=== PATIENT | female | born 1990 | race African-American/Black ===

== ENCOUNTER 2016-10-19 00:44 | Emergency (ER) | payer OTHER ==
--- NOTE | 2016-10-19 01:29 | PDOC ---
History of Present Illness - General History Source: Patient Exam Limitations: No Limitations - History of Present Illness Initial Comments: 10/19/16 01:59 The patient is a 26 year old female with no PMHx who presents to the ED with back pain urinary frequency. She reports back pain before due to scoliosis, but states this pain is different. She denies flank pain, dysuria, hematuria, nausea , vomiting, fever, chills. <Arlet Messer - Last Filed: 10/19/16 01:59> <Miladys Raymundo - Last Filed: 10/19/16 06:15> - General Chief Complaint: Back Pain Stated Complaint: preg test Time Seen by Provider: 10/19/16 01:21 Past History <Arlet Messer - Last Filed: 10/19/16 01:59> - Past Medical History Suicide Attempt (Hx): No - Immunization History Immunization Up to Date: Yes - Psycho/Social/Smoking Cessation Hx Anxiety: No Suicidal Ideation: No Smoking Status: No Smoking History: Current every day smoker Have you smoked in the past 12 months: No Number of Cigarettes Smoked Daily: 3 Cigars Per Day: 0 Hx Alcohol Use: No Drug/Substance Use Hx: No Substance Use Type: Marijuana <Miladys Raymundo - Last Filed: 10/19/16 06:15> - Past Medical History Allergies/Adverse Reactions: Allergies Allergy/AdvReac Type Severity Reaction Status Date / Time lactose Allergy Verified 10/19/16 01:41 Home Medications: Ambulatory Orders Methocarbamol [Robaxin -] 500 mg PO TID #30 tablet 10/19/16 Review of Systems - Review of Systems Comments:: 10/19/16 02:00 GENERAL/CONSTITUTIONAL: No fever or chills. No weakness. HEAD, EYES, EARS, NOSE AND THROAT: No change in vision. No ear pain or discharge. No sore throat. CARDIOVASCULAR: No chest pain or shortness of breath. RESPIRATORY: No cough, wheezing, or hemoptysis. GASTROINTESTINAL: No nausea, vomiting, diarrhea or constipation. GENITOURINARY: + frequency. No dysuria, flank pain or change in urination. MUSCULOSKELETAL: + back pain. No joint or muscle swelling or pain. No neck pain. SKIN: No rash NEUROLOGIC: No headache, vertigo, loss of consciousness, or change in strength/ sensation. ENDOCRINE: No increased thirst. No abnormal weight change. HEMATOLOGIC/LYMPHATIC: No anemia, easy bleeding, or history of blood clots. ALLERGIC/IMMUNOLOGIC: No hives or skin allergy. <Arlet Messer - Last Filed: 10/19/16 01:59> *Physical Exam - Vital Signs Last Vital Signs Temp Pulse Resp BP Pulse Ox 98 F 86 16 125/70 100 10/19/16 01:37 10/19/16 01:37 10/19/16 01:37 10/19/16 01:37 10/19/16 01:37 - Physical Exam Comments: 10/19/16 02:01 GENERAL: Awake, alert, and fully oriented, in no acute distress, HEAD: No signs of trauma EYES: PERRLA, EOMI, sclera anicteric, conjunctiva clear ENT: Auricles normal inspection, hearing grossly normal, nares patent, oropharynx clear without exudates. Moist mucosa NECK: Normal ROM, supple, no lymphadenopathy, JVD, or masses LUNGS: Breath sounds equal, clear to auscultation bilaterally. No wheezes, and no crackles HEART: Regular rate and rhythm, normal S1 and S2, no murmurs, rubs or gallops ABDOMEN: Soft, nontender, normoactive bowel sounds. No guarding, no rebound. No masses EXTREMITIES: Midline tenderness around T8-T9. Normal range of motion, no edema. No clubbing or cyanosis. No cords, erythema. No CVA tenderness. NEUROLOGICAL: Cranial nerves II through XII grossly intact. Normal speech, normal gait SKIN: Warm, Dry, normal turgor, no rashes or lesions noted. <Arlet Messer A - Last Filed: 10/19/16 01:59> ED Treatment Course - ADDITIONAL ORDERS Additional order review: Laboratory Results 10/19/16 10/19/16 01:30 01:30 Urine Color Yellow Urine Appearance Clear Urine pH 5.0 Ur Specific [place] 1.032 Urine Protein Negative Urine Glucose (UA) Negative Urine Ketones Negative Urine Blood Negative Urine Nitrite Negative Urine Bilirubin Negative Urine Urobilinogen Negative Ur Leukocyte Esterase Trace H Urine RBC 1 Urine WBC 5 Ur Epithelial Cells Few Urine Bacteria Rare Hyaline Casts 2 Urine Mucus Many Urine HCG, Qual Negative <Arlet Messer A - Last Filed: 10/19/16 01:59> Medical Decision Making - Medical Decision Making 10/19/16 06:14 Pt comes with back pain. She states that she has scoliosis and that she thinks that this is the muscle pain. However, the pain is slightly worse and she is in th ER with a friend, so she figured she would get evaluated also. She will be treated with NSAID and muscle relaxant. UA is normal. I will not get imaging studies at this time <Miladys Raymundo - Last Filed: 10/19/16 06:15> *DC/Admit/Observation/Transfer - Attestations Scribe Attestion: 10/19/16 02:02 Documentation prepared by Arlet Messer, acting as medical transcription for Miladys Raymundo MD. <Arlet Messer - Last Filed: 10/19/16 01:59> - Discharge Dispostion Admit: No <Miladys Raymundo - Last Filed: 10/19/16 06:15> Diagnosis at time of Disposition: Musculoskeletal pain - Discharge Dispostion Disposition: HOME Condition at time of disposition: Stable - Prescriptions Prescriptions: Methocarbamol [Robaxin -] 500 mg PO TID #30 tablet - Referrals Referrals: Hussain Portillo MD [Primary Care Provider] - - Patient Instructions Printed Discharge Instructions: DI for Musculoskeletal Pain - Post Discharge Activity Work/School Note: Back to Work
[2016-10-19] MEDS ORDERED: IBUPROFEN 600 MG TABLET (FP) PO ONE ×2 (01:30→01:56)
[2016-10-19] MEDS ORDERED: METHOCARBAMOL 500 MG TABLET PO ONE (01:31)
[2016-10-19 01:48] LABS: URINE APPEARANCE CLEAR; URINE BILIRUBIN NEGATIVE (NEGATIVE); URINE BLOOD NEGATIVE (NEGATIVE); URINE COLOR YELLOW; URINE GLUCOSE (UA) NEGATIVE (NEGATIVE); URINE KETONE NEGATIVE (NEGATIVE); URINE NITRITE NEGATIVE (NEGATIVE); URINE PROTEIN NEGATIVE (NEGATIVE); URINE UROBILINOGEN NEGATIVE E.U./dl (0.2-1.0)
[2016-10-19 01:49] LABS: URINE LEUK ESTERASE TRACE (NEGATIVE)
[2016-10-19 01:50] LABS: URINE BACTERIA RARE /hpf (NONE SEEN); URINE HYALINE CAST 2 /lpf; URINE MUCUS MANY; URINE RBC 1 /hpf (0-3); URINE WBC 5 /hpf (3-5)
[2016-10-19] MEDS ORDERED: METHOCARBAMOL 500 MG TABLET ONE (01:55)
[2016-10-19 03:49] VITALS: BP 125/70; PULSE 86; TEMP 98; BMI 32.9
== END 2016-10-19 02:12 | disposition home or self-care (01) ==
LOC: JER 00:44
DX: M54.5 Low back pain (principal); F17.210 Nicotine dependence, cigarettes, uncomplicated
CPT/HCPCS: 81003; 81015; 84703; 99281-25

== ENCOUNTER 2017-04-04 17:44 | Emergency (ER) | payer OTHER ==
[2017-04-04 17:53] VITALS: BP 122/76; PULSE 89; TEMP 98.4; BMI 33.6
[2017-04-04] MEDS ORDERED: ACETAMINOPHEN 325 MG TABLET (FP) PO ONE (19:00)
--- NOTE | 2017-04-04 19:07 | PDOC ---
History of Present Illness - General Chief Complaint: Headache Stated Complaint: HEADACHE Time Seen by Provider: 04/04/17 18:29 History Source: Patient Exam Limitations: No Limitations - History of Present Illness Initial Comments: 04/04/17 19:04 Chief complaint: Left upper molar toothache and left sided headache History of present illness: Patient is a 26-year-old female with no significant medical history here today complaining of a severe headache left side of head that started approximately at 3 PM today. Patient reports she has left upper molar decay with pain getting worse over the last couple months. Patient reports that she was waiting for insurance to become active so that she could get it treated. Patient reports that pain is currently a 10 out of 10 slight photophobia patient denies any nausea or vomiting or fever. She reports noticing left-sided facial swelling this morning none is noted presently. Timing/Duration: getting worse Severity: severe (left side of head) Associated Symptoms: reports: headaches (left sided ), other (left upper toothache) Past History - Past Medical History Allergies/Adverse Reactions: Allergies Allergy/AdvReac Type Severity Reaction Status Date / Time lactose Allergy Verified 04/04/17 17:49 Home Medications: Ambulatory Orders Oxycodone HCl/Acetaminophen [Percocet 5-325 mg Tablet] 1 tab PO Q6H PRN #6 tablet MDD 3 04/04/17 Penicillin V Potassium [Pen Vee K -] 500 mg PO QID #28 tablet 04/04/17 Suicide Attempt (Hx): No - Immunization History Immunization Up to Date: Yes - Psycho/Social/Smoking Cessation Hx Anxiety: No Suicidal Ideation: No Smoking Status: No Smoking History: Current every day smoker Have you smoked in the past 12 months: No Number of Cigarettes Smoked Daily: 3 Cigars Per Day: 0 Information on smoking cessation initiated: No Hx Alcohol Use: No Drug/Substance Use Hx: No Substance Use Type: Marijuana Review of Systems - Review of Systems Able to Perform ROS?: Yes Constitutional: No: Symptoms Reported HEENTM: Yes: Dental Problems (left upper molar decay painful) Respiratory: No: Symptoms reported Cardiac (ROS): No: Symptoms Reported ABD/GI: No: Symptoms Reported : No: Symptoms Reported Musculoskeletal: No: Symptoms Reported Integumentary: Yes: Other (left sided upper molar pain ) Neurological: Yes: Headache (left temporal ) *Physical Exam - Vital Signs Last Vital Signs Temp Pulse Resp BP Pulse Ox 98.4 F 89 17 122/76 99 04/04/17 17:49 04/04/17 17:49 04/04/17 17:49 04/04/17 17:49 04/04/17 17:49 - Physical Exam General Appearance: Yes: Appropriately Dressed HEENT: positive: EOMI, MICHAEL, TMs Normal, Other (left upper molar decay/tender surrounding gum edema ). negative: Pharyngeal Erythema, Tonsillar Exudate, Tonsillar Erythema, Nasal Congestion, Rhinorrhea Neck: positive: Lymphadenopathy (L). negative: Lymphadenopathy (R) Respiratory/Chest: positive: Lungs Clear, Normal Breath Sounds. negative: Chest Tender, Respiratory Distress Cardiovascular: positive: Regular Rhythm, Regular Rate, S1, S2 Integumentary: positive: Normal Color Neurologic: positive: icu specialist II-XII NML intact, Fully Oriented, Alert, Normal Response, Responsive, Finger to Nose Medical Decision Making - Medical Decision Making 04/04/17 19:07 Patient is a 26-year-old female with no significant medical history here today complaining of a severe headache left side of head that started approximately at 3 PM today. Patient reports she has left upper molar decay with pain getting worse over the last couple months. Patient reports that she was waiting for insurance to become active so that she could get it treated. Patient reports that pain is currently a 10 out of 10 slight photophobia patient denies any nausea or vomiting or fever. She reports noticing left-sided facial swelling this morning none is noted presently. Pt. is not on OCP. Pt. is unsure of status. left sided headache toothache left upper molar PLAN: ACETAMINOPHEN 650 MG PO NOW URINE HCG NEGATIVE 04/04/17 19:43 PAIN PERSISTS PERCOCET 5MG/325 MG PO NOW that every 6 hrs prn severe pain # 6 tabs 04/04/17 20:27 feeling better will discharge with rx for pen vk 500 mg qid for 7 days follow up with dentist *DC/Admit/Observation/Transfer Diagnosis at time of Disposition: Tooth ache, Infected tooth Headache Qualifiers: Headache type: unspecified Headache chronicity pattern: acute headache Intractability: not intractable Qualified Code(s): R51 - Headache - Discharge Dispostion Disposition: HOME Condition at time of disposition: Stable - Referrals Referrals: Hussain Portillo MD [Primary Care Provider] - - Patient Instructions Additional Instructions: Follow Up with dentist tomorrow Ibuprofen as needed as directed by rapier insertion loom fixer for mild to moderate pain Return to emergency room if symptoms worsen Patient voiced understanding of discharge instructions and all questions were answered - Post Discharge Activity
[2017-04-04] MEDS ORDERED: ACETAMINOPHEN 325 MG TABLET (FP) ONE (19:17)
== END 2017-04-04 20:42 | disposition home or self-care (01) ==
LOC: JERFT 17:44
DX: K08.89 Other specified disorders of teeth and supporting structures (principal); R51 Headache
CPT/HCPCS: 84703; 99281-25

== ENCOUNTER 2017-09-17 18:40 | Emergency (ER) | payer OTHER ==
[2017-09-17 19:49] VITALS: BP 128/98; PULSE 75; TEMP 98.6; BMI 35.5
--- NOTE | 2017-09-17 19:49 | PDOC ---
Rapid Medical Evaluation Time Seen by Provider: 09/17/17 19:47 Medical Evaluation: Allergies Allergy/AdvReac Type Severity Reaction Status Date / Time lactose Allergy Verified 04/04/17 17:49 09/17/17 19:47 I have performed a brief in-person evaluation of this patient. The patient presents with a chief complaint of: right sided pelvic pain w/o fever/n/v x7 days. Neg urinary symptoms LMP:08/11/2017 Pertinent physical exam findings: left pelvic pain on palp. Abd exam;benign I have ordered the following: pelvic US, ua, upreg, cbc.,cmp The patient will proceed to the ED for further evaluation 09/17/17 19:51
[2017-09-17 20:05] LABS: BASO % 0.7 % (0-2.0); EOS % 0.8 % (0-4.5); HEMATOCRIT 39.8 % (32.4-45.2); HEMOGLOBIN 13.3 GM/dL (10.7-15.3); LYMPH % 30.1 % (8-40); MCH 28.1 pg (25.7-33.7); MCHC 33.5 g/dl (32.0-36.0); MEAN CELL VOLUME 83.7 fl (80-96); MEAN PLT VOLUME 7.7 fl (7.5-11.1); MONO % 7.1 % (3.8-10.2); NEUT % 61.3 % (42.8-82.8); PLATELET COUNT 271 K/MM3 (134-434); RBC 4.76 M/mm3 (3.60-5.2); RDW 13.8 % (11.6-15.6); WHITE BLOOD COUNT 9.6 K/mm3 (4.0-10.0)
[2017-09-17 20:10] LABS: HCG,QUALITATIVE URINE NEGATIVE; URINE APPEARANCE CLEAR; URINE BILIRUBIN NEGATIVE (NEGATIVE); URINE BLOOD NEGATIVE (NEGATIVE); URINE COLOR YELLOW; URINE GLUCOSE (UA) NEGATIVE (NEGATIVE); URINE KETONE NEGATIVE (NEGATIVE); URINE NITRITE NEGATIVE (NEGATIVE); URINE PROTEIN NEGATIVE (NEGATIVE)
[2017-09-17 20:12] LABS: URINE LEUK ESTERASE 1+ (NEGATIVE)
[2017-09-17 20:13] LABS: EPI CELLS RARE /HPF (FEW); URINE MUCUS RARE
[2017-09-17 21:07] LABS: ALBUMIN 3.6 g/dl (3.4-5.0); ALK PHOS 72 U/L (45-117); ANION GAP 6 (8-16); BILIRUBIN,TOTAL 0.4 mg/dL (0.2-1.0); BLOOD UREA NITROGEN 11 mg/dL (7-18); CALCIUM 8.6 mg/dL (8.5-10.1); CHLORIDE 102 mmol/L (98-107); CO2 29 mmol/L (21-32); CREATININE 0.8 mg/dL (0.55-1.02); GLUCOSE,RANDOM 84 mg/dL (74-106); POTASSIUM 3.9 mmol/L (3.5-5.1); SGOT/AST 16 U/L (15-37); SGPT/ALT 34 U/L (12-78); SODIUM 137 mmol/L (136-145); TOT PROT 7.7 g/dl (6.4-8.2)
--- NOTE | 2017-09-17 22:32 | PDOC ---
History of Present Illness <MichoacanoJaun - Last Filed: 09/17/17 22:30> - General History Source: Patient Exam Limitations: No Limitations - History of Present Illness Initial Comments: 09/17/17 23:06 The patient is a 27 year old female with no significant past medical history who presents to the ED with complaints of abdominal pain for the past week. The patient locates her pain to her LLQ and describes it as cramping. She reports that initially the pain was intermittent, but has been getting worse and more constant over the past week. It is accompanied with nausea as well as diarrhea yesterday followed by constipation today, but she denies vomiting. She denies any fevers, chills, cough, CP, or urinary symptoms. <Nova Bourne - Last Filed: 09/17/17 23:09> - General Chief Complaint: Pain Stated Complaint: ABD PAIN Time Seen by Provider: 09/17/17 19:47 Past History - Past Medical History COPD: No - Immunization History Immunization Up to Date: Yes - Suicide/Smoking/Psychosocial Hx Smoking Status: No Smoking History: Former smoker Have you smoked in the past 12 months: Yes Number of Cigarettes Smoked Daily: 3 Cigars Per Day: 0 Information on smoking cessation initiated: No Hx Alcohol Use: No Drug/Substance Use Hx: No Substance Use Type: None, Marijuana <Jaun Ríos - Last Filed: 09/17/17 22:30> <Nova Bourne - Last Filed: 09/17/17 23:09> - Past Medical History Allergies/Adverse Reactions: Allergies Allergy/AdvReac Type Severity Reaction Status Date / Time lactose Allergy Verified 09/17/17 19:49 Home Medications: Ambulatory Orders Oxycodone HCl/Acetaminophen [Percocet 5-325 mg Tablet] 1 tab PO Q6H PRN #6 tablet MDD 3 04/04/17 Penicillin V Potassium [Pen Vee K -] 500 mg PO QID #28 tablet 04/04/17 Review of Systems - Review of Systems Able to Perform ROS?: Yes Comments:: 09/17/17 23:07 Vitals: Triage Vital signs reviewed General Appearance: no acute distress, well nourished well developed, Cardiac: Regular rate and rhythm, no murmurs, no rubs, no gallops, Lungs: Clear to auscultation bilateral, good air movement bilaterally, Abdomen: Mild LLQ tenderness to palpation, Soft, nondistended, normal bowel sounds Pelvic: No adnexal tenderness, no CMT, moderate yeast infection Extremities: Full range of motion to all extremities, no cyanosis, clubbing, or edema Skin: Warm and dry, no rashes or lesions, no petechiae Neuro: AOX3; Cranial Nerves 2-12 grossly intact <YesicacarolinaNova - Last Filed: 09/17/17 23:09> *Physical Exam - Vital Signs Last Vital Signs Temp Pulse Resp BP Pulse Ox 98.6 F 75 20 128/98 100 09/17/17 19:45 09/17/17 19:45 09/17/17 19:45 09/17/17 19:45 09/17/17 19:45 <Jaun Ríos - Last Filed: 09/17/17 22:30> - Vital Signs Last Vital Signs Temp Pulse Resp BP Pulse Ox 98.6 F 75 20 128/98 100 09/17/17 19:45 09/17/17 19:45 09/17/17 19:45 09/17/17 19:45 09/17/17 19:45 <YesicacarolinaNova - Last Filed: 09/17/17 23:09> ED Treatment Course - LABORATORY CBC & Chemistry Diagram: 09/17/17 19:58 09/17/17 19:54 - ADDITIONAL ORDERS Additional order review: Laboratory Results 09/17/17 09/17/17 19:58 19:54 Sodium 137 Potassium 3.9 Chloride 102 Carbon Dioxide 29 Anion Gap 6 L BUN 11 Creatinine 0.8 Creat Clearance w eGFR > 60 Random Glucose 84 Calcium 8.6 Total Bilirubin 0.4 AST 16 ALT 34 Alkaline Phosphatase 72 Total Protein 7.7 Albumin 3.6 Urine Color Yellow Urine Appearance Clear Urine pH 6.0 Ur Specific [place] 1.023 Urine Protein Negative Urine Glucose (UA) Negative Urine Ketones Negative Urine Blood Negative Urine Nitrite Negative Urine Bilirubin Negative Urine Urobilinogen 2.0 H Ur Leukocyte Esterase 1+ H Urine WBC (Auto) 3 Urine RBC (Auto) 1 Ur Epithelial Cells Rare Urine Mucus Rare Urine HCG, Qual Negative 09/17/17 19:58 RBC 4.76 MCV 83.7 MCHC 33.5 RDW 13.8 MPV 7.7 Neutrophils % 61.3 D Lymphocytes % 30.1 D Monocytes % 7.1 Eosinophils % 0.8 D Basophils % 0.7 <Juan Ríos - Last Filed: 09/17/17 22:30> - LABORATORY CBC & Chemistry Diagram: 09/17/17 19:58 09/17/17 19:54 - ADDITIONAL ORDERS Additional order review: Laboratory Results 09/17/17 09/17/17 19:58 19:54 Sodium 137 Potassium 3.9 Chloride 102 Carbon Dioxide 29 Anion Gap 6 L BUN 11 Creatinine 0.8 Creat Clearance w eGFR > 60 Random Glucose 84 Calcium 8.6 Total Bilirubin 0.4 AST 16 ALT 34 Alkaline Phosphatase 72 Total Protein 7.7 Albumin 3.6 Urine Color Yellow Urine Appearance Clear Urine pH 6.0 Ur Specific [place] 1.023 Urine Protein Negative Urine Glucose (UA) Negative Urine Ketones Negative Urine Blood Negative Urine Nitrite Negative Urine Bilirubin Negative Urine Urobilinogen 2.0 H Ur Leukocyte Esterase 1+ H Urine WBC (Auto) 3 Urine RBC (Auto) 1 Ur Epithelial Cells Rare Urine Mucus Rare Urine HCG, Qual Negative 09/17/17 19:58 RBC 4.76 MCV 83.7 MCHC 33.5 RDW 13.8 MPV 7.7 Neutrophils % 61.3 D Lymphocytes % 30.1 D Monocytes % 7.1 Eosinophils % 0.8 D Basophils % 0.7 <Nova Bourne - Last Filed: 09/17/17 23:09> Medical Decision Making - Medical Decision Making 09/17/17 22:30 1 week history of mild left lower quadrant pain No fever no vomiting yesterday had loose stool today was slightly constipated. Patient with moderate yeast infection on pelvic exam no adnexal tenderness no CMT Labs unremarkable no elevated white blood cell count Ultrasound with no acute findings Given 1 week history of mild lower abdominal discomfort with no fever no white count no evidence of PID on pelvic exam and moderate yeast infection we'll treat with [id number] Monistat Patient will follow-up with her [employer] on Wednesday. She'll return to the emergency department for any fever severe worsening abdominal pain or for any concerns We discussed the utility of a CAT scan at this point but given 1 week history of symptoms with no fever no white count we have decided using shared decision making that the risk of radiation does not outweigh the risk of acute surgical pathology at this time should anything change she will return <Jaun Ríos - Last Filed: 09/17/17 22:30> *DC/Admit/Observation/Transfer - Discharge Dispostion Admit: No <Jaun Ríos - Last Filed: 09/17/17 22:30> - Attestations Scribe Attestion: 09/17/17 23:09 Documentation prepared by Nova Bourne, acting as medical coder for Jaun Ríos MD. <Nova Bourne - Last Filed: 09/17/17 23:09> Diagnosis at time of Disposition: Candidiasis - Referrals Referrals: Hussain Portillo MD [Primary Care Provider] - - Patient Instructions Printed Discharge Instructions: DI for Vaginal Yeast Infection Additional Instructions: Take an [id number] probiotic as directed on package. Take over-the- counter Monistat as directed on package. Drink plenty of fluids. Follow-up with your [employer] [employer] on Wednesday. Return to the emergency department immediately for any fever severe worsening abdominal pain or for any concerns. - Post Discharge Activity
== END 2017-09-17 23:01 | disposition home or self-care (01) ==
LOC: JER 18:40
DX: B37.3 Candidiasis of vulva and vagina (principal)
CPT/HCPCS: 36415; 76830-TC; 80053; 81003; 81015; 84703; 85025; 99281-25

== ENCOUNTER 2018-03-24 05:06 | Emergency (ER) | payer OTHER ==
[2018-03-24 05:13] VITALS: TEMP 98.5; BMI 36.0
[2018-03-24] MEDS ORDERED: SODIUM CHLORIDE 0.9% 500 ML INFUS.BAG IV ONE (05:19)
[2018-03-24] MEDS ORDERED: METOCLOPRAMIDE HCL INJECTION 10 MG/2 ML VIAL IVPUSH ONE (05:20)
[2018-03-24] MEDS ORDERED: ACETAMINOPHEN 1000 MG/100 ML VIAL (NON FORMULARY) IVPB ONE (05:20)
--- NOTE | 2018-03-24 05:29 | PDOC ---
History of Present Illness - General Chief Complaint: CVA/TIA Stated Complaint: LEFT SIDED BODY NUMBNESS Time Seen by Provider: 03/24/18 05:09 - History of Present Illness Initial Comments: 03/24/18 05:23 27-year-old female with no significant past medical history presents emergency Department with left-sided numbness. Patient notes left upper extremity numbness since 6 PM yesterday. She also reports numbness to her left lower extremity since 10 PM last night. Patient did not present at onset of symptoms because she wanted to "sleep for the ward helper." When the symptoms persisted, she presented to the emergency department. Patient works at [employer] and states her coworkers gave her Motrin but she denies any pain. Denies any current headache. Denies any headache that preceded the symptoms. She has never had any similar symptoms in the past. Denies any recent cold symptoms, diarrheal illness, back or neck pain. Denies chest pain, shortness of breath. Denies stiff neck. Denies rashes. Denies any tick bites. Denies abd pain, N/V/ D. Denies dizziness, speech difficulty. Denies urinary symptons Past History - Past Medical History Allergies/Adverse Reactions: Allergies Allergy/AdvReac Type Severity Reaction Status Date / Time lactose Allergy Verified 12/18/17 19:45 Home Medications: Ambulatory Orders Motrin - 400 mg PO ONCE 03/24/18 COPD: No - Immunization History Immunization Up to Date: Yes - Suicide/Smoking/Psychosocial Hx Smoking Status: No Smoking History: Current every day smoker Have you smoked in the past 12 months: Yes Number of Cigarettes Smoked Daily: 5 Cigars Per Day: 0 Information on smoking cessation initiated: Yes Hx Alcohol Use: No Drug/Substance Use Hx: No Substance Use Type: None, Marijuana Review of Systems - Review of Systems Comments:: 03/24/18 05:27 GENERAL/CONSTITUTIONAL: No fever or chills. No weakness. HEAD, EYES, EARS, NOSE AND THROAT: No change in vision. No ear pain or discharge. No sore throat. GASTROINTESTINAL: No nausea, vomiting, diarrhea or constipation. GENITOURINARY: No dysuria, frequency, or change in urination. CARDIOVASCULAR: No chest pain or shortness of breath. RESPIRATORY: No cough, wheezing, or hemoptysis. MUSCULOSKELETAL: No joint or muscle swelling or pain. No neck or back pain. SKIN: No rash NEUROLOGIC: No headache, vertigo, loss of consciousness, or change in strength. +L sided numbness ENDOCRINE: No increased thirst. No abnormal weight change. HEMATOLOGIC/LYMPHATIC: No anemia, easy bleeding, or history of blood clots. ALLERGIC/IMMUNOLOGIC: No hives or skin allergy. *Physical Exam - Vital Signs Last Vital Signs Temp Pulse Resp BP Pulse Ox 98.5 F 76 14 114/74 100 03/24/18 05:08 03/24/18 05:08 03/24/18 05:08 03/24/18 05:08 03/24/18 05:08 - Physical Exam Comments: 03/24/18 05:27 GENERAL: Awake, alert, and fully oriented, in no acute distress HEAD: No signs of trauma EYES: PERRLA, EOMI, sclera anicteric, conjunctiva clear ENT: Auricles normal inspection, hearing grossly normal, nares patent, oropharynx clear without exudates. Moist mucosa NECK: Normal ROM, supple, no lymphadenopathy, JVD, or masses LUNGS: Breath sounds equal, clear to auscultation bilaterally. No wheezes, and no crackles HEART: Regular rate and rhythm, normal S1 and S2, no murmurs, rubs or gallops ABDOMEN: Soft, nontender, normoactive bowel sounds. No guarding, no rebound. No masses EXTREMITIES: Normal range of motion, no edema. No clubbing or cyanosis. No cords, erythema, or tenderness NEUROLOGICAL: Normal speech, cranial nerves intact, negative pronator drift, 4/ 5 strength in LUE and LLE, 5/5 strength in RUE and RLE, normal sensation to light touch in all 4 extremities, normal cerebellar exam, normal gait, normal reflexes and tone SKIN: Warm, Dry, normal turgor, no rashes or lesions noted. NIH Stroke Scale - Last Known Well Date/Time & Onset Date Last Known Well: 03/23/18 Time Last Known Well: 18:00 - Initial Evaluation Level of consciousness: Alert Ask patient the month and their age: Answers both correctly Ask patient to open & close eyes; make fist and let go: Obeys both correctly Best gaze (horizontal eye movement): Normal Visual field testing: No visual field loss Facial paresis (Show teeth/raise eyebrows/close eyes tight): Normal symmetrical movement Motor Function: Left Arm: Some effort against gravity Motor Function: Right Arm: Normal (extends arm 90 (or 45) degrees for 10 seconds without drift Motor Function: Left Leg: Some effort against gravity Motor Function: Right Leg: Normal (extends leg 30 degrees for 5 seconds without drift) Limb Ataxia: No ataxia Sensory(Use pinprick test arms,legs,trunk,face/side to side): Mild to moderate decrease in sensation Best language (Describe picture, name items, read sentences): No Aphasia Dysarthria (read several words): Normal articulation Extinction and Inattention: No abnormality - Total Score NIH Stroke Scale Score: 5 TIA Risk Factors - ABCD Score Age: Age < 60 Blood Pressure: SBP < 140 and DBP < 90 Clinical Features of TIA: Uni wk w/wo speech impair Duration: TIA duration = or > 60min Diabetes: No Total ABCD2 Score (0-7):: 4 Heart Score/ECG Review #1 03/24/18 05:38 Twelve-lead EKG was performed and reviewed by me. Sinus bradycardia with sinus arrhythmia likely secondary to respiratory variation, rate 59. Normal axis, no ST elevations or T-wave inversions. Critical Care Time/MDM Note - Medical Decision Making Note: 03/24/18 05:30 27yo F with no sig PMH presents wit L sided numbness. VS wnl. Exam with LUE and LLE weakness and decreased sensation. DDX includes but not limited to cva vs tia vs atypical migraine vs conversion d/o. Plan -stroke labs -upt -cth -reglan/tylenol -neuro c/s -reassess Discharge Disposition - Discharge Dispostion Condition at time of disposition: Stable Last Admission D/C Date: 89 - Referrals - Patient Instructions - Post Discharge Activity
[2018-03-24] MEDS ORDERED: SODIUM CHLORIDE 1,000 ML IV SCH (05:30)
[2018-03-24] MEDS ORDERED: ACETAMINOPHEN INJECTION 100 ML IVPB ONE (05:41)
[2018-03-24 07:31] LABS: BASO % 0.6 % (0-2.0); EOS % 1.6 % (0-4.5); HEMATOCRIT 38.6 % (32.4-45.2); HEMOGLOBIN 12.8 GM/dl (10.7-15.3); LYMPH % 20.9 % (8-40); MCHC 33.2 g/dl (32.0-36.0); MEAN CELL VOLUME 81.3 fl (80-96); MONO % 6.5 % (3.8-10.2); NEUT % 70.4 % (42.8-82.8); PLATELET COUNT 353 K/MM3 (134-434); RBC 4.75 M/mm3 (3.60-5.2); RDW 12.9 % (11.6-15.6); WHITE BLOOD COUNT 10.2 K/mm3 (4.0-10.8)
[2018-03-24 07:41] LABS: PH,URINE 5.5 (4.5-8); URINE APPEARANCE Clear; URINE BILIRUBIN Negative (NEGATIVE); URINE COLOR Yellow; URINE GLUCOSE (UA) Negative (NEGATIVE); URINE KETONE Negative (NEGATIVE); URINE LEUK ESTERASE TRACE (NEGATIVE); URINE NITRITE Negative (NEGATIVE); URINE PROTEIN 1+ (NEGATIVE); URINE UROBILINOGEN 0.2 (0.2-1.0)
--- NOTE | 2018-03-24 07:43 | PDOC ---
*Physical Exam - Vital Signs Last Vital Signs Temp Pulse Resp BP Pulse Ox 98.5 F 76 14 114/74 100 03/24/18 05:08 03/24/18 05:08 03/24/18 05:08 03/24/18 05:08 03/24/18 05:08 ED Treatment Course - LABORATORY CBC & Chemistry Diagram: 03/24/18 05:17 03/24/18 05:17 - ADDITIONAL ORDERS Additional order review: Laboratory Results 03/24/18 03/24/18 05:18 05:17 Urine Color Yellow Urine Appearance Clear Urine pH 5.5 Ur Specific [place] >= 1.030 H Urine Protein 1+ H Urine Glucose (UA) Negative Urine Ketones Negative Urine Blood Negative Urine Nitrite Negative Urine Bilirubin Negative Urine Urobilinogen 0.2 Ur Leukocyte Esterase Trace H Urine HCG, Qual Negative 03/24/18 05:17 RBC 4.75 MCV 81.3 MCHC 33.2 RDW 12.9 MPV 8.0 Neutrophils % 70.4 Lymphocytes % 20.9 Monocytes % 6.5 Eosinophils % 1.6 Basophils % 0.6 - Medications Given in the ED: ED Medications Discontinued Medications Generic Name Dose Route Start Last Admin Trade Name Freq PRN Reason Stop Dose Admin Acetaminophen 1,000 mg 03/24/18 05:20 03/24/18 05:40 Ofirmev Injection - IVPB 03/24/18 05:21 1,000 mg ONCE ONE Administration Metoclopramide HCl 10 mg 03/24/18 05:20 03/24/18 05:40 Reglan Injection - IVPUSH 03/24/18 05:21 10 mg ONCE ONE Administration Sodium Chloride 1,000 ml 03/24/18 05:19 03/24/18 05:40 Normal Saline - IV 03/24/18 05:20 1,000 ml ONCE ONE Administration Medical Decision Making - Medical Decision Making 03/24/18 11:57 Late entry. Patient was endorsed to me by Dr. Levin at 7am shift change, pending labs and CTH. She states that she felt "pins and needles" in her L forearm and lower leg this morning, not quite numbness. She also felt mild weakness at the time. CTH read by radiology, no acute findings. Patient is able to ambulate in the ED, table for OR home. Contacted Dr. Portillo's office to discuss and arrange outpatient f/u, as MS is on the DDx, and this should be followed up. 03/24/18 12:11 Dr. Portillo's office states they will call her to arrange f/u and MRI if necessary. *DC/Admit/Observation/Transfer Diagnosis at time of Disposition: Paresthesias - Discharge Dispostion Disposition: HOME Condition at time of disposition: Stable Decision to Admit order: No - Referrals Referrals: Eric Bowman MD [Staff Physician] - - Patient Instructions Printed Discharge Instructions: DI for Headache, DI for Numbness/tingling - Post Discharge Activity Forms/Work/School Notes: Back to Work
[2018-03-24 07:50] LABS: ALK PHOS 63 U/L (32-92); ANION GAP 6 (8-16); BILIRUBIN,TOTAL 0.4 mg/dl (0.2-1.0); BLOOD UREA NITROGEN 11 mg/dl (7-18); CALCIUM 9.4 mg/dl (8.4-10.2); CHLORIDE 101 mmol/L (98-107); CHOLESTEROL 183 mg/dl; CO2 27 mmol/L (22-28); CREATININE 0.7 mg/dl (0.6-1.3); GLUCOSE,RANDOM 84 mg/dl (74-106); HDL CHOLESTEROL 61 mg/dl (29-89); POTASSIUM 3.6 mmol/L (3.5-5.1); SGOT/AST 26 U/L (10-42); SGPT/ALT 25 U/L (10-40); SODIUM 134 mmol/L (136-145); TOT PROT 7.9 g/dl (6.4-8.3); TRIGLYCERIDES 82 mg/dl (35-160)
[2018-03-24 07:55] LABS: INR 1.01 (0.82-1.09); PROTHROMBIN TIME (PATIENT) 11.3 SEC (10.2-13.0)
[2018-03-24 08:47] LABS: EPI CELLS MANY /HPF; URINE BACTERIA MANY /hpf (NEGATIVE); URINE RBC 0-3 /hpf (0-3)
[2018-03-24 08:53] VITALS: PULSE 63
[2018-03-24 10:53] VITALS: BP 124/77
[2018-03-24] MEDS ORDERED: ACETAMINOPHEN 325 MG TABLET (FP) PO ONE (12:15)
[2018-03-24] MEDS ORDERED: ACETAMINOPHEN 325 MG TABLET (FP) ONE (12:20)
--- NOTE | 2018-03-24 14:33 | EKG ---
Test Reason : Blood Pressure : / mmHG Vent. Rate : 059 BPM Atrial Rate : 059 BPM P-R Int : 146 ms QRS Dur : 080 ms QT Int : 404 ms P-R-T Axes : 048 028 033 degrees QTc Int : 399 ms SINUS BRADYCARDIA WITH SINUS ARRHYTHMIA OTHERWISE NORMAL ECG NO PREVIOUS ECGS AVAILABLE Confirmed by DOC RIVERA, LIZZ ([id number]) on 03/24/2018 2:32:34 PM Referred By: MD ELLIS Confirmed By:LIZZ ROACH MD
== END 2018-03-24 12:48 | disposition home or self-care (01) ==
LOC: FER 05:06
PROC: 3E033NZ Introduction of Analgesics, Hypnotics, Sedatives into Peripheral Vein, Percutaneous Approach (ICD-10-PCS; principal; 2018-03-24)
PROC: 3E033GC Introduction of Other Therapeutic Substance into Peripheral Vein, Percutaneous Approach (ICD-10-PCS; 2018-03-24)
PROC: 3E0337Z Introduction of Electrolytic and Water Balance Substance into Peripheral Vein, Percutaneous Approach (ICD-10-PCS; 2018-03-24)
DX: R20.2 Paresthesia of skin (principal); F17.210 Nicotine dependence, cigarettes, uncomplicated
CPT/HCPCS: 36415; 70450-TC; 80053; 81003; 81015; 82465; 83718; 84478; 84484; 84703; 85025; 85610; 93005; 99285-25; J0131

== ENCOUNTER 2018-06-05 20:50 | Emergency (ER) | payer OTHER ==
[2018-06-05 21:04] VITALS: BMI 35.5
[2018-06-05] MEDS ORDERED: METOCLOPRAMIDE HCL INJECTION 10 MG/2 ML VIAL IVPUSH ONE (23:40)
[2018-06-05] MEDS ORDERED: KETOROLAC TROMETHAMINE 30 MG/1 ML VIAL IVPUSH ONE (23:40)
[2018-06-05] MEDS ORDERED: SODIUM CHLORIDE 0.9% 500 ML INFUS.BAG IV ONE (23:40)
--- NOTE | 2018-06-05 23:50 | PDOC ---
History of Present Illness - General Chief Complaint: Headache Stated Complaint: PAIN Time Seen by Provider: 06/05/18 22:15 History Source: Patient Exam Limitations: No Limitations - History of Present Illness Initial Comments: 06/05/18 23:35 Patient is a 27-year-old female with no past medical history here with complaints of headache 2 weeks. States headache was a gradual onset now 10/10 associated with nausea, photophobia, no vomiting. States she has had headaches like this in the past however never been evaluated for migraines. went to [facility] on 3 days ago and was given a shot with no relief of symptoms. PMD: Dr. Portillo PMHX: as above PSOCHX: (+) cig 3/day, (-) drug, (-) etoh ALL: NKDA GENERAL/CONSTITUTIONAL: [No fever or chills. No weakness. No weight change.] HEAD, EYES, EARS, NOSE AND THROAT: [No change in vision. No ear pain or discharge. No sore throat.] CARDIOVASCULAR: [No chest pain or shortness of breath.] RESPIRATORY: [No cough, wheezing, or hemoptysis.] GASTROINTESTINAL: [No nausea, vomiting, diarrhea or constipation. No rectal bleeding.] GENITOURINARY: [No dysuria, frequency, or change in urination.] MUSCULOSKELETAL: [No joint or muscle swelling or pain. No neck or back pain.] SKIN AND BREASTS: [No rash or easy bruising.] NEUROLOGIC: [No headache, vertigo, loss of consciousness, or loss of sensation.] PSYCHIATRIC: [No depression or anxiety.] ENDOCRINE: [No increased thirst. No abnormal weight change.] HEMATOLOGIC/LYMPHATIC: [No anemia, easy bleeding, or history of blood clots.] ALLERGIC/IMMUNOLOGIC: [No hives or skin allergy. No latex allergy.] GENERAL: [The patient is awake, alert, and fully oriented, in mild distress, shielding eyes.] HEAD: [Normal with no signs of trauma.] EYES: [Pupils equal, round and reactive to light, extraocular movements intact, sclera anicteric, conjunctiva clear.] ENT: [Ears normal, nares patent, oropharynx clear without exudates. Moist mucous membranes.] NECK: [Normal range of motion, supple without lymphadenopathy, JVD, or masses.] LUNGS: [Breath sounds equal, clear to auscultation bilaterally. No wheezes, and no crackles.] HEART: [Regular rate and rhythm, normal S1 and S2 without murmur, rub.] ABDOMEN: [Soft, nontender, normoactive bowel sounds. No guarding, no rebound. No masses.] EXTREMITIES: [Normal range of motion, no edema. No clubbing or cyanosis. No cords, erythema, or tenderness.] NEUROLOGICAL: [Cranial nerves II through XII grossly intact. Normal speech, normal gait.] PSYCH: [Normal mood, normal affect.] SKIN: [Warm, Dry, normal turgor, no rashes or lesions noted.] Past History - Past Medical History Allergies/Adverse Reactions: Allergies Allergy/AdvReac Type Severity Reaction Status Date / Time lactose Allergy Verified 06/05/18 21:04 Home Medications: Ambulatory Orders Motrin - 400 mg PO ONCE 03/24/18 COPD: No - Immunization History Immunization Up to Date: Yes - Suicide/Smoking/Psychosocial Hx Smoking Status: No Smoking History: Current every day smoker Have you smoked in the past 12 months: Yes Number of Cigarettes Smoked Daily: 3 Cigars Per Day: 0 Information on smoking cessation initiated: No 'Breaking Loose' booklet given: 03/24/18 Hx Alcohol Use: No Drug/Substance Use Hx: No Substance Use Type: None *Physical Exam - Vital Signs Last Vital Signs Temp Pulse Resp BP Pulse Ox 98.4 F 66 16 117/73 100 06/05/18 21:01 06/05/18 21:01 06/05/18 21:01 06/05/18 21:01 06/05/18 21:01 ED Treatment Course - LABORATORY CBC & Chemistry Diagram: 06/05/18 23:40 06/06/18 00:30 Medical Decision Making - Medical Decision Making 06/05/18 23:35 Patient is a 27-year-old female with no past medical history here with complaints of headache 2 weeks. 06/06/18 02:36 Patient Full Name: JENNIFER WU Patient Accession No: [id number] Patient : 1990 Reason for Exam: headache Referring Physician: Patient Name: JAZMIN RODRIGUEZ THIS IS A PRELIMINARY REPORT FROM [facility] DATE OF SERVICE: 2018-06-06 01:34:52 IMAGES: [id number] EXAM: CT HEAD WITHOUT CONTRAST No acute brain parenchymal abnormality. No hemorrhage, mass or acute territorial infarct. Clear visualized paranasal sinuses. Visualized mastoid air cells clear. Individualized dose optimization techniques were used for this CT. THIS DOCUMENT HAS BEEN ELECTRONICALLY SIGNED Olivia Chun M.D. 06/06/2018 01:53 EST Allison. Please call Imaging Police Records Clerk [phone] ([phone]) with questions. INTERPRETING RADIOLOGIST: Olivia Chun MD Electronically Signed: Jun 06, 2018 01:53AM ED 06/06/18 04:56 Pain is resolved after Tylenol. I discussed the physical exam findings, ancillary test results and final diagnoses with the patient. I answered all of the patient's questions. The patient was satisfied with the care received and felt comfortable with the discharge plan and treatment plan. The Patient agrees to follow up with the primary care physician within 24-72 hours. *DC/Admit/Observation/Transfer Diagnosis at time of Disposition: Headache Qualifiers: Headache type: unspecified Headache chronicity pattern: acute headache Intractability: not intractable Qualified Code(s): R51 - Headache - Discharge Dispostion Disposition: HOME Condition at time of disposition: Stable - Referrals Referrals: Hussain Portillo MD [Primary Care Provider] - Fortino Mak DO [Staff Physician] - - Patient Instructions Printed Discharge Instructions: DI for Headache Additional Instructions: Your Discharge Instructions: You must call primary care physician within 24 hours to arrange follow-up. Return to the Emergency Department with any new, persistent or worsening symptoms, for fever, chills, SOB, dizziness or any other concerning changes that may occur. Must follow-up with neurology for appropriate treatment and evaluation - Post Discharge Activity
[2018-06-06] MEDS ORDERED: KETOROLAC TROMETHAMINE 30 MG/1 ML VIAL ONE (00:02)
[2018-06-06] MEDS ORDERED: METOCLOPRAMIDE HCL INJECTION 10 MG/2 ML VIAL ONE (00:02)
[2018-06-06 01:06] LABS: HEMATOCRIT 37.2 % (32.4-45.2); HEMOGLOBIN 12.4 GM/dL (10.7-15.3); MCH 27.2 pg (25.7-33.7); MCHC 33.2 g/dl (32.0-36.0); MEAN PLT VOLUME 8.5 fl (7.5-11.1); PLATELET COUNT 325 K/MM3 (134-434); RBC 4.54 M/mm3 (3.60-5.2); RDW 15.1 % (11.6-15.6); WHITE BLOOD COUNT 9.3 K/mm3 (4.0-10.0)
[2018-06-06 01:31] LABS: ALBUMIN 3.5 g/dl (3.4-5.0); ALK PHOS 75 U/L (45-117); ANION GAP 6 MMOL/L (8-16); BILIRUBIN,TOTAL 0.3 mg/dL (0.2-1); BLOOD UREA NITROGEN 10 mg/dL (7-18); CALCIUM 8.8 mg/dL (8.5-10.1); CHLORIDE 105 mmol/L (98-107); CO2 25 mmol/L (21-32); CREATININE 0.8 mg/dL (0.55-1.3); GLUCOSE,RANDOM 83 mg/dL (74-106); POTASSIUM 4.1 mmol/L (3.5-5.1); SGOT/AST 33 U/L (15-37); SGPT/ALT 41 U/L (13-61); SODIUM 137 mmol/L (136-145); TOT PROT 7.6 g/dl (6.4-8.2)
[2018-06-06] MEDS ORDERED: ACETAMINOPHEN 1000 MG/100 ML VIAL (NON FORMULARY) IVPB ONE (03:10)
[2018-06-06] MEDS ORDERED: ACETAMINOPHEN INJECTION 100 ML IVPB ONE (04:15)
[2018-06-06 05:32] VITALS: BP 106/62; PULSE 71; TEMP 98.2
== END 2018-06-06 05:28 | disposition home or self-care (01) ==
LOC: JER 20:50
PROC: 3E033GC Introduction of Other Therapeutic Substance into Peripheral Vein, Percutaneous Approach (ICD-10-PCS; principal; 2018-06-05)
PROC: 3E033GC Introduction of Other Therapeutic Substance into Peripheral Vein, Percutaneous Approach (ICD-10-PCS; 2018-06-05)
PROC: 3E033NZ Introduction of Analgesics, Hypnotics, Sedatives into Peripheral Vein, Percutaneous Approach (ICD-10-PCS; 2018-06-05)
PROC: 3E0333Z Introduction of Anti-inflammatory into Peripheral Vein, Percutaneous Approach (ICD-10-PCS; 2018-06-05)
DX: R51 Headache (principal)
CPT/HCPCS: 36415; 70450-TC; 80053; 84703; 85027; 96374; 96375; 99282-25; J0131

== ENCOUNTER 2018-06-24 17:09 | Emergency (ER) | payer OTHER ==
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
[2018-06-24 17:24] VITALS: BP 129/91; PULSE 94; TEMP 99.2; BMI 35.4
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
[2018-06-24] MEDS ORDERED: KETOROLAC TROMETHAMINE 30 MG/1 ML VIAL IVPUSH ONE (19:27)
[2018-06-24] MEDS ORDERED: METHOCARBAMOL 500 MG TABLET PO ONE (19:27)
[2018-06-24] MEDS ORDERED: KETOROLAC TROMETHAMINE 30 MG/1 ML VIAL IM ONE (19:28)
[2018-06-24] MEDS ORDERED: METHOCARBAMOL 500 MG TABLET ONE (19:44)
[2018-06-24] MEDS ORDERED: KETOROLAC TROMETHAMINE 30 MG/1 ML VIAL ONE (19:44)
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
== END 2018-06-24 18:20 | disposition home or self-care (01) ==
LOC: JER 17:09
PROC: 3E0233Z Introduction of Anti-inflammatory into Muscle, Percutaneous Approach (ICD-10-PCS; principal; 2018-06-24)
DX: S13.4XXA Sprain of ligaments of cervical spine, initial encounter (principal); V44.5XXA Car driver injured in collision with heavy transport vehicle or bus in traffic accident, initial encounter; Y92.488 Other paved roadways as the place of occurrence of the external cause; Y93.89 Activity, other specified; Y99.8 Other external cause status; F17.210 Nicotine dependence, cigarettes, uncomplicated
CPT/HCPCS: 72125-TC; 84703; 99282-25

== ENCOUNTER 2018-11-21 14:54 | Emergency (ER) | payer OTHER ==
[2018-11-21 15:10] VITALS: BP 131/74; PULSE 80; TEMP 99.4; BMI 35.5
[2018-11-21] MEDS ORDERED: ACETAMINOPHEN 500 MG TABLET (FP) PO ONE (15:45)
[2018-11-21] MEDS ORDERED: KETOROLAC TROMETHAMINE 60 MG/2 ML VIAL IM ONE (15:45)
--- NOTE | 2018-11-21 15:46 | PDOC ---
History of Present Illness - General Chief Complaint: Headache Stated Complaint: HEADACHE Time Seen by Provider: 11/21/18 15:43 - History of Present Illness Initial Comments: 11/21/18 15:45 28-year-old female without comorbidities presents for evaluation of a migraine headache. She states she has a history of migraines and this is similar in character to her prior headaches. She was a the care of a neurologist but she has since run out of her migraine medication. This headache is associated with a bandlike tension around her head. Typical of her usual headaches. She's had this for 2 days she has not taken any medication to try to abort the headache. She denies any possibility of . Past History - Past Medical History Allergies/Adverse Reactions: Allergies Allergy/AdvReac Type Severity Reaction Status Date / Time lactose Allergy Verified 11/21/18 15:10 Home Medications: Ambulatory Orders Methocarbamol [Robaxin -] 1,000 mg PO TID PRN 7 Days #21 tablet 06/24/18 Topiramate mg PO ASDIR 06/24/18 COPD: No Other medical history: SCOLIOSIS - Immunization History Immunization Up to Date: Yes - Suicide/Smoking/Psychosocial Hx Smoking Status: No Smoking History: Current every day smoker Have you smoked in the past 12 months: Yes Number of Cigarettes Smoked Daily: 3 Cigars Per Day: 0 Information on smoking cessation initiated: No 'Breaking Loose' booklet given: 03/24/18 Hx Alcohol Use: No Drug/Substance Use Hx: No Substance Use Type: None Review of Systems - Review of Systems Constitutional: No: Fever Neurological: Yes: Headache *Physical Exam - Vital Signs Last Vital Signs Temp Pulse Resp BP Pulse Ox 99.4 F 80 14 131/74 98 11/21/18 15:08 11/21/18 15:08 11/21/18 15:08 11/21/18 15:08 11/21/18 15:08 - Physical Exam Comments: 11/21/18 15:46 HEAD: NC/AT EYES: Conjuntiva clear Ears: Canals and TM's normal NOSE: No d/c THROAT: Moist mucous membrances, oral pharanx clear, uvula midline NECK: Supple without adenopathy CARDIAC: S1 S2 LUNGS: CTA Full and Equal breath sounds ABDOMEN: Soft NT ND MS: Full ROM in all joints without edema NEUROLOGIC: No gross sensory or motor deficits, NVID SKIN: Normal color and temperature no lesions or rashes Medical Decision Making - Medical Decision Making 11/21/18 16:00 Relief after Toradol and Tylenol. I'll give patient neurology follow-up discussed use of Tylenol and Motrin at home for headaches. *DC/Admit/Observation/Transfer Diagnosis at time of Disposition: Headache - Discharge Dispostion Disposition: HOME Condition at time of disposition: Improved Decision to Admit order: No - Referrals Referrals: Hussain Portillo MD [Primary Care Provider] - Fortino Mak DO [Staff Physician] - - Patient Instructions Printed Discharge Instructions: DI for Headache Additional Instructions: Tylenol Motrin as directed for headache. Return to the emergency room for worsening symptoms. Follow-up with neurology in 2-3 days for further evaluation and treatment options. - Post Discharge Activity Forms/Work/School Notes: Back to Work
[2018-11-21] MEDS ORDERED: KETOROLAC TROMETHAMINE 60 MG/2 ML VIAL ONE (15:47)
[2018-11-21] MEDS ORDERED: ACETAMINOPHEN 500 MG TABLET (FP) ONE (15:47)
== END 2018-11-21 16:04 | disposition home or self-care (01) ==
LOC: JERFT 14:54
PROC: 3E0233Z Introduction of Anti-inflammatory into Muscle, Percutaneous Approach (ICD-10-PCS; principal; 2018-11-21)
DX: G43.909 Migraine, unspecified, not intractable, without status migrainosus (principal)
CPT/HCPCS: 99281-25

== ENCOUNTER 2019-08-19 11:16 | Emergency (ER) | payer SELFPAY ==
[2019-08-19 11:28] VITALS: BMI 37.9
[2019-08-19] MEDS ORDERED: ONDANSETRON 4 MG/2 ML VIAL IVPB ONE (12:07)
[2019-08-19] MEDS ORDERED: SODIUM CHLORIDE 1,000 ML IV STA (12:07)
[2019-08-19] MEDS ORDERED: ACETAMINOPHEN 1000 MG/100 ML VIAL (NON FORMULARY) IVPB ONE (12:07)
[2019-08-19] MEDS ORDERED: ONDANSETRON 4 MG/2 ML VIAL ONE (12:12)
[2019-08-19] MEDS ORDERED: ACETAMINOPHEN INJECTION 100 ML IVPB ONE (12:12)
--- NOTE | 2019-08-19 12:31 | PDOC ---
History of Present Illness - General Chief Complaint: Nausea/Vomiting Stated Complaint: VOMITING/ BODY PAIN Time Seen by Provider: 08/19/19 11:40 History Source: Patient Exam Limitations: No Limitations - History of Present Illness Initial Comments: 08/19/19 12:23 CHIEF COMPLAINT: Abdominal pain HISTORY OF PRESENT ILLNESS: This is a 29-year-old female with a history of migraines who presents with two days of lower abdominal/back pain and vomiting. She denies constipation/diarrhea. She has been having chills and is febrile here today. She denies recent travel or sick contacts but does report having a catered lunch at work yesterday. She denies headache, chest pain, shortness of breath, or any other symptoms. V/s on arrival are notable of T 100.9 orally and pulse of 109. REVIEW OF SYSTEMS: GENERAL/CONSTITUTIONAL: Fevers/chills. No weakness. No weight change. HEAD, EYES, EARS, NOSE AND THROAT: No change in vision. No ear pain or discharge. No sore throat. CARDIOVASCULAR: No chest pain or palpitations. RESPIRATORY: No cough, wheezing, or shortness of breath. GASTROINTESTINAL: See HPI. GENITOURINARY: Right flank pain. MUSCULOSKELETAL: No joint or muscle swelling or pain. No neck or back pain. SKIN: No rash or easy bruising. NEUROLOGIC: No headache, vertigo, loss of consciousness, or loss of sensation. PSYCHIATRIC: No depression or anxiety. ENDOCRINE: No increased thirst. No abnormal weight change. HEMATOLOGIC/LYMPHATIC: No anemia, easy bleeding, or history of blood clots. ALLERGIC/IMMUNOLOGIC: No hives or skin allergy. No latex allergy. PHYSICAL EXAM: GENERAL: The patient is awake, alert, and fully oriented, in no acute distress. HEAD: Normal with no signs of trauma. ENT: Pupils equal, round and reactive to light, extraocular movements intact, sclera anicteric, conjunctiva clear. Neck supple. LUNGS: Clear to auscultation bilaterally. Normal excursion. No respiratory distress or use of accessory muscles. CV: RRR, S1/S2, no MRG. Cap refill < 2 sec. ABDOMEN: Softly distended. RUQ tenderness. R CVA tenderness. No guarding or rebound tenderness. No peritoneal signs. EXTREMITIES: Normal range of motion, no edema. NEUROLOGICAL: Normal speech, normal gait. CN II-XII grossly intact. PSYCH: Normal mood, normal affect. SKIN: Warm, dry, normal turgor, no rashes or lesions noted. 08/19/19 12:24 Past History - Past Medical History Allergies/Adverse Reactions: Allergies Allergy/AdvReac Type Severity Reaction Status Date / Time lactose Allergy Verified 08/19/19 11:22 Home Medications: Ambulatory Orders Ondansetron [Zofran *Odt*] 4 mg SL TID PRN #21 od.tablet 08/19/19 COPD: No - Immunization History Immunization Up to Date: Yes - Psycho Social/Smoking Cessation Hx Smoking Status: No Smoking History: Current some day smoker Have you smoked in the past 12 months: Yes Number of Cigarettes Smoked Daily: 1 Cigars Per Day: 0 Information on smoking cessation initiated: No 'Breaking Loose' booklet given: 03/24/18 Hx Alcohol Use: No Drug/Substance Use Hx: No Substance Use Type: None *Physical Exam - Vital Signs Last Vital Signs Temp Pulse Resp BP Pulse Ox 100.6 F H 109 H 12 121/77 99 08/19/19 11:25 08/19/19 11:25 08/19/19 11:25 08/19/19 11:25 08/19/19 11:59 ED Treatment Course - LABORATORY CBC & Chemistry Diagram: 08/19/19 12:15 08/19/19 12:15 - RADIOLOGY Radiology Studies Ordered: Category Date Time Status GALLBLADDER US [US] Stat Ultrasound 08/19/19 12:07 Ordered Medical Decision Making - Medical Decision Making 08/19/19 12:31 A/P: 29-year-old female with fevers/chills, RUQ and R flank pain, and vomiting. Differential includes but is not limited to: influenza with GI symptoms, other gastroenteritis, cholecystitis, pyelonephritis, less likely appendicitis. 1. Labs including CBC, CMP, lipase 2. UA/culture, urine 3. Gallbladder u/s 4. Ofirmev 1g IVPB for fever and pain 5. Zofran 8mg IVP for nausea 6. 1L NS bolus 7. Re-assess 08/19/19 13:16 WBC elevated at 12.6. Flu neg. LFTs/lipase WNL UA without evidence of infection 08/19/19 14:07 Gallbladder u/s neg 08/19/19 15:10 CTAP demonstrates left ovarian cyst, no acute pathology Results discussed with patient Tolerating PO Repeat v/s within normal range Will dc with supportive measures Followup instructions and return precautions reviewed Discharge - Discharge Information Problems reviewed: Yes Clinical Impression/Diagnosis: Abdominal pain Condition: Improved Disposition: HOME - Admission No - Additional Discharge Information Prescriptions: Ondansetron [Zofran *Odt*] 4 mg SL TID PRN #21 od.tablet PRN Reason: Nausea - Follow up/Referral Referrals: [facility] [place] [facility] [place] [Provider Group] - 3 days (Primary care) - Patient Discharge Instructions Patient Printed Discharge Instructions: DI for Abdominal Pain-Adult Additional Instructions: -You were seen today for abdominal pain -Your white blood cell count was mildly elevated at 12.6 and should be repeated next week -Your CT scan showed a left ovarian cyst, but no other abnormalitis -Drink plenty of fluids -Eat a bland diet (rice, toast, crackers, applesauce) until you are feeling better -Take Tylenol as needed for pain and fever -Take Zofran as prescribed if needed for nausea -Follow up with primary care next week (referral enclosed if needed) -Return here for worsening pain, inability to keep down fluids, or any other concerning smyptoms - Post Discharge Activity Work/Back to School Note: Back to Work
[2019-08-19 12:44] LABS: BASO % 0.3 % (0-2.0); EOS % 0.1 % (0-4.5); HEMATOCRIT 39.8 % (32.4-45.2); HEMOGLOBIN 13.2 GM/dL (10.7-15.3); LYMPH % 4.4 % (8-40); MCH 27.7 pg (25.7-33.7); MCHC 33.3 g/dl (32.0-36.0); MEAN CELL VOLUME 83.3 fl (80-96); MEAN PLT VOLUME 7.6 fl (7.5-11.1); MONO % 4.3 % (3.8-10.2); NEUT % 90.9 % (42.8-82.8); PLATELET COUNT 302 K/MM3 (134-434); RBC 4.78 M/mm3 (3.60-5.2); RDW 14.5 % (11.6-15.6); WHITE BLOOD COUNT 12.6 K/mm3 (4.0-10.0)
[2019-08-19 13:07] LABS: ALBUMIN 3.8 g/dl (3.4-5.0); BILIRUBIN,TOTAL 0.8 mg/dL (0.2-1); BLOOD UREA NITROGEN 9.8 mg/dL (7-18); CALCIUM 8.9 mg/dL (8.5-10.1); POTASSIUM 3.6 mmol/L (3.5-5.1); TOT PROT 8.1 g/dl (6.4-8.2)
[2019-08-19 13:19] LABS: PH,URINE 6.5 (5.0-8.0); URINE APPEARANCE CLOUDY; URINE BILIRUBIN NEGATIVE (NEGATIVE); URINE COLOR YELLOW; URINE GLUCOSE (UA) NEGATIVE (NEGATIVE); URINE KETONE NEGATIVE (NEGATIVE); URINE LEUK ESTERASE NEGATIVE (NEGATIVE); URINE NITRITE NEGATIVE (NEGATIVE); URINE PROTEIN NEGATIVE (NEGATIVE)
[2019-08-19] MEDS ORDERED: morphine CARPU-JECT 4 MG/1 ML DISP.SYRIN IVPUSH ONE (14:44)
[2019-08-19 14:49] VITALS: BP 116/73; PULSE 89; TEMP 97.9
[2019-08-19] MEDS ORDERED: morphine SULFATE 4 MG/ML VIAL ONE (14:50)
== END 2019-08-19 15:53 | disposition home or self-care (01) ==
LOC: JER 11:16
CPT/HCPCS: 36415; 74177-TC; 76705-TC; 80053; 81003; 83690; 84703; 85025; 87086; 87804; 99284-25; J0131; J7030; Q9967

== ENCOUNTER 2022-01-27 09:58 | Emergency (ER) | payer OTHER ==
[2022-01-27 10:27] VITALS: BP 118/79; PULSE 91; TEMP 98.7; BMI 40.1
[2022-01-27] MEDS ORDERED: KETOROLAC TROMETHAMINE 30 MG/1 ML VIAL IM ONE (12:19)
[2022-01-27] MEDS ORDERED: KETOROLAC TROMETHAMINE 30 MG/1 ML VIAL ONE (12:20)
== END 2022-01-27 12:17 | disposition home or self-care (01) ==
LOC: JERFT 09:58
PROC: 3E0233Z Introduction of Anti-inflammatory into Muscle, Percutaneous Approach (ICD-10-PCS; principal; 2022-01-27)
DX: R09.81 Nasal congestion (principal); R51.9 Headache, unspecified; J02.9 Acute pharyngitis, unspecified
CPT/HCPCS: 0241U-QW; 87651; 99284-25

== ENCOUNTER 2022-10-14 14:41 | Emergency (ER) | payer OTHER ==
[2022-10-14 15:19] VITALS: RESP 20; BMI 41.8
[2022-10-14 16:25] LABS: EPI CELLS 32 /uL (0-25.1); HYALINE CASTS 0 /uL (0-3.1); PH,URINE 7.5 (5.0-8.0); URINE APPEARANCE CLEAR; URINE BACTERIA 1673 /uL (0-1359); URINE BILIRUBIN NEGATIVE (NEGATIVE); URINE COLOR YELLOW; URINE GLUCOSE (UA) NEGATIVE (NEGATIVE); URINE KETONE TRACE (NEGATIVE); URINE LEUK ESTERASE 1+ (NEGATIVE); URINE NITRITE NEGATIVE (NEGATIVE); URINE PROTEIN 1+ (NEGATIVE); URINE RBC 13 /uL (0-23.9); URINE WBC 45 /uL (0-25.8)
[2022-10-14] MEDS ORDERED: ONDANSETRON 4 MG/2 ML VIAL IVPUSH ONE (16:28)
[2022-10-14] MEDS ORDERED: ACETAMINOPHEN 500 MG TABLET (FP) PO ONE (16:28)
[2022-10-14] MEDS ORDERED: METOCLOPRAMIDE HCL INJECTION 10 MG/2 ML VIAL IVPUSH ONE (16:30)
[2022-10-14] MEDS ORDERED: ONDANSETRON 4 MG/2 ML VIAL ONE (17:16)
[2022-10-14] MEDS ORDERED: METOCLOPRAMIDE HCL INJECTION 10 MG/2 ML VIAL ONE (17:16)
[2022-10-14] MEDS ORDERED: ACETAMINOPHEN 500 MG TABLET (FP) ONE (17:37)
[2022-10-14 18:26] VITALS: BP 108/62; PULSE 98; TEMP 100.1
[2022-10-14 18:48] LABS: BASO % 0.2 % (0-2.0); EOS % 0.2 % (0-4.5); HEMATOCRIT 36.4 % (32.4-45.2); HEMOGLOBIN 12.2 GM/dL (10.7-15.3); LYMPH % 8.6 % (8-40); MCH 25.9 pg (25.7-33.7); MCHC 33.5 g/dl (32.0-36.0); MEAN CELL VOLUME 77.4 fl (80-96); MEAN PLT VOLUME 7.5 fl (7.5-11.1); MONO % 6.2 % (3.8-10.2); NEUT % 84.8 % (42.8-82.8); PLATELET COUNT 293 10^3/uL (134-434); RDW 18.7 % (11.6-15.6); WHITE BLOOD COUNT 10.2 K/mm3 (4.0-10.0)
[2022-10-14 19:05] LABS: ALBUMIN 3.1 g/dl (3.4-5.0); BLOOD UREA NITROGEN 5.2 mg/dL (7-18); CALCIUM 8.7 mg/dL (8.5-10.1)
[2022-10-14 19:08] LABS: CREATININE 0.6 mg/dL (0.55-1.3)
[2022-10-14 19:09] LABS: BILIRUBIN,TOTAL 0.5 mg/dL (0.2-1); TOT PROT 7.3 g/dl (6.4-8.2)
== END 2022-10-14 20:14 | disposition home or self-care (01) ==
LOC: JER 14:41
PROC: 3E033GC Introduction of Other Therapeutic Substance into Peripheral Vein, Percutaneous Approach (ICD-10-PCS; principal; 2022-10-14)
DX: O21.9 Vomiting of pregnancy, unspecified (principal); Z3A.12 12 weeks gestation of pregnancy
CPT/HCPCS: 0241U-QW; 36415; 76801-TC; 80053; 81003; 84702; 84703; 85025; 86850; 86900; 86901; 87086; 99284-25

== ENCOUNTER 2023-04-19 07:35 | Inpatient (IN) | payer OTHER ==
[2023-04-19] MEDS ORDERED: OXYTOCIN 10 UNITS/ML VIAL ONE (08:00)
[2023-04-19] MEDS ORDERED: OXYTOCIN 20 UNITS in 0.9% NS 20 UNIT/1,000 ML INFUS.BAG IV ONE ×2 (08:25→09:56)
[2023-04-19] MEDS ORDERED: METHYLERGONOVINE MALEATE 0.2 MG/1 ML AMP IM PRN (08:42)
[2023-04-19] MEDS ORDERED: BENZOCAINE 20% 57 GM BOTTLE TP PRN (08:42)
[2023-04-19] MEDS ORDERED: ACETAMINOPHEN 325 MG TABLET (FP) PO PRN (08:42)
[2023-04-19] MEDS ORDERED: BENZOCAINE 28 GM HEMORRHOIDAL OINTMENT TP PRN (08:42)
[2023-04-19] MEDS ORDERED: WITCH HAZEL 50% (TUCKS) 40 PAD/JAR PAD TP PRN (08:42)
[2023-04-19] MEDS ORDERED: BISACODYL 10 MG SUPP.RECT RC PRN (08:42)
[2023-04-19] MEDS ORDERED: OXYTOCIN 20 UNITS in 0.9% NS 20 UNIT/1,000 ML INFUS.BAG IV SCH (08:45)
[2023-04-19 10:08] VITALS: BMI 41.1
[2023-04-19] MEDS: IBUPROFEN 600 MG TABLET (FP) PO PRN (10:11)
[2023-04-19] MEDS ORDERED: IBUPROFEN 600 MG TABLET (FP) PO ONE (10:14)
[2023-04-19 11:22] LABS: HEMATOCRIT 34.7 % (32.4-45.2); HEMOGLOBIN 11.3 GM/dL (10.7-15.3); MCH 23.4 pg (25.7-33.7); MCHC 32.6 g/dl (32.0-36.0); MEAN CELL VOLUME 71.8 fl (80-96); PLATELET COUNT 262 10^3/uL (134-434); RBC 4.83 M/mm3 (3.60-5.2); RDW 15.7 % (11.6-15.6); WHITE BLOOD COUNT 21.8 K/mm3 (4.0-10.0)
[2023-04-19 11:24] LABS: INR 0.97 (0.83-1.09); PROTHROMBIN TIME (PATIENT) 11.2 SEC (9.7-13.0)
[2023-04-19 11:26] LABS: ACTIVATED PTT 25.2 SECONDS (25.2-36.5)
[2023-04-19 11:41] LABS: POTASSIUM 3.9 mmol/L (3.5-5.1)
[2023-04-19 11:43] LABS: CALCIUM 8.9 mg/dL (8.5-10.1)
[2023-04-19 11:44] LABS: ANISOCYTOSIS 0; HELMET CELLS 0; HOWELL-JOLLY BODIES 0; MACROCYTOSIS 0; OVALOCYTE 0; ROULEAU 0; SICKELED CELLS 0; TARGET CELLS 0; TEAR DROP CELLS 0; TOXIC GRANULATION 0
[2023-04-19] MEDS ORDERED: OXYTOCIN 10 UNITS/ML VIAL IM SCH (11:45)
[2023-04-19 11:46] LABS: CREATININE 0.6 mg/dL (0.55-1.3)
[2023-04-19 21:28] VITALS: RESP 18
[2023-04-20] MEDS: IBUPROFEN 600 MG TABLET (FP) PO PRN ×2 (03:11→16:35)
[2023-04-20 09:09] LABS: BASO % 0.2 % (0-2.0); EOS % 0.9 % (0-4.5); HEMOGLOBIN 9.1 GM/dL (10.7-15.3); LYMPH % 15.4 % (8-40); MCH 23.2 pg (25.7-33.7); MCHC 31.4 g/dl (32.0-36.0); MEAN CELL VOLUME 73.8 fl (80-96); MEAN PLT VOLUME 7.4 fl (7.5-11.1); MONO % 5.3 % (3.8-10.2); NEUT % 78.2 % (42.8-82.8); PLATELET COUNT 250 10^3/uL (134-434); RBC 3.93 M/mm3 (3.60-5.2); WHITE BLOOD COUNT 11.9 K/mm3 (4.0-10.0)
[2023-04-20] MEDS ORDERED: SENNOSIDES/DOCUSATE COMBO (SENNA PLUS) TABLET (UD) PO PRN (22:00)
[2023-04-20 22:16] VITALS: PULSE 80; TEMP 98
[2023-04-21] MEDS: IBUPROFEN 600 MG TABLET (FP) PO PRN (01:50)
[2023-04-21 10:35] VITALS: BP 129/80
== END 2023-04-21 12:35 | disposition home or self-care (01) | DRG 560 ==
LOC: JLDR 07:35 → J3W 11:05
PROVIDERS: ADMIT Obstetrics & Gynecology; ATTEND Obstetrics & Gynecology
PROC: 10E0XZZ Delivery of Products of Conception, External Approach (ICD-10-PCS; principal; 2023-04-19)
PROC: 0HQ9XZZ Repair Perineum Skin, External Approach (ICD-10-PCS; 2023-04-19)
DX: O34.219 Maternal care for unspecified type scar from previous cesarean delivery (principal); O42.02 Full-term premature rupture of membranes, onset of labor within 24 hours of rupture; O70.0 First degree perineal laceration during delivery; Z3A.39 39 weeks gestation of pregnancy; Z37.0 Single live birth
CPT/HCPCS: 36415; 80048; 85025; 85610; 85730; 86780; 86850; 86900; 86901